=== PATIENT | female | born 1965 | race American Indian/Alaskan Native ===

== ENCOUNTER 2017-01-02 13:58 | Outpatient (CLI) | payer MEDICARE ==
--- NOTE | 2017-01-03 08:46 | Magnetic Resonance Report ---
MR CERVICAL SPINE WITHOUT CONTRAST HISTORY: Cervical spondylosis, neck pain, bone spur. TECHNIQUE: Axial T2. Sagittal T1, T2 and STIR. FINDINGS: The cervical spinal cord is normal size and signal intensity. No mass or abnormal intramedullary signal. Normal height and alignment of the cervical vertebral bodies. Normal bone marrow signal. No evidence for fracture, bone lesion or subluxation. The posterior elements are in appropriate relationship. There is mild diffuse disc desiccation. Mild disc space narrowing at C4-5 and C5-6. Mild diffuse facet arthropathy. No hypertrophic changes. C2-3: No abnormality. C3-4: Mild bilateral uncovertebral spurring and mild facet arthropathy are identified. Left neural foraminal narrowing is estimated at 50%. C4-5: Mild posterior and bilateral uncovertebral spurring is identified. Mild facet arthropathy. There is borderline to mild central canal narrowing measuring 9 mm in AP dimension. Bilateral neural foraminal narrowing is estimated at 50%. C5-6: A mild posterior bulging disc and mild right uncovertebral spurring are identified. Mild facet arthropathy. Right neural foraminal narrowing is estimated at 50%. C6-7: No abnormality. C7-T1: No abnormality. Impression: Mild to moderate multilevel cervical spondylosis as described above. C4-5 appears to be the most affected level.
== END 2017-01-02 13:59 | disposition home or self-care (01) ==
LOC: MRI 13:58
PROVIDERS: ATTEND Internal Medicine
DX: M47.892 Other spondylosis, cervical region (principal); M12.88 Other specific arthropathies, not elsewhere classified, other specified site; M53.82 Other specified dorsopathies, cervical region
CPT/HCPCS: 72141

== ENCOUNTER 2017-07-25 10:53 | Outpatient (CLI) | payer MEDICARE ==
--- NOTE | 2017-07-25 12:57 | Mammography Report ---
BILATERAL MAMMOGRAM: FINDINGS: The breasts are almost entirely fat (<25% glandular). No mass, distortion, suspicious calcification, or skin change is seen. CAD was utilized. IMPRESSION: Negative mammogram. There is no mammographic evidence of malignancy. RECOMMENDATION: Follow-up per ACS guidelines. BI-RADS CATEGORY: 1 = Negative ACR BI-RADS MAMMOGRAPHIC CODES: 0 = Needs additional imaging evaluation; 1 = Negative; 2 = Benign; 3 = Probably benign; 4 = Suspicious; 5 = Malignant; 6 = Known biopsy-proven malignancy COMMENT: 1. Dense breast tissue, i.e., adenosis, fibrocystic changes, etc., may obscure an underlying neoplasm. 2. Approximately 10% of cancers are not detected with mammography. 3. A negative mammography report should not delay biopsy if a clinically suspicious mass is present. COMMENT: Patient follow-up letters are generated in [employer].
== END 2017-07-25 10:54 | disposition home or self-care (01) ==
LOC: MAMMO 10:53
PROVIDERS: ATTEND Internal Medicine
DX: Z12.31 Encounter for screening mammogram for malignant neoplasm of breast (principal)
CPT/HCPCS: 77067

== ENCOUNTER 2017-08-22 07:44 | Outpatient (CLI) | payer MEDICARE ==
[2017-08-22] MEDS ORDERED: LEXISCAN IV ONE ×2 (08:58→09:04)
[2017-08-22 12:03] VITALS: BP 116/69
--- NOTE | 2017-08-23 02:03 | Treadmill Report ---
CARDIOVASCULAR NUCLEAR PERFUSION STUDY READING PHYSICIAN: Dr. Mistry. IMAGING PROTOCOL: The patient received 10 mCi of Technetium 99m Tetrofosmin for resting image and 28 mCi of Technetium 99m Tetrofosmin for stress imaging. The imaging for the whole procedure was completed 30-90 minutes following the initial injection of Technetium 99m Tetrofosmin. The SPECT imaging in the 180 degree arc was performed in the right anterior oblique projection. Computerized reconstruction of the images was performed for analysis. IMAGING RESULTS: Normal cavity size from stress to rest. Normal distribution of radionuclide in the anterior, inferior, septal, and apical regions. Gated SPECT, EF 65% with no wall motion abnormality. The patient infused Lexiscan with no EKG changes. SUMMARY: 1. Negative Lexiscan EKG. 2. Normal rest and stress myocardial perfusion scan. No significant stress ischemia. No wall motion abnormality. Gated SPECT, EF 65%. JOB# [id number] ANTONIETA/STEPHANY
== END 2017-08-22 07:45 | disposition home or self-care (01) ==
LOC: CARD 07:44
PROVIDERS: ATTEND Internal Medicine
DX: I10 Essential (primary) hypertension (principal)
CPT/HCPCS: 78452; 93017; A9502; J2785

== ENCOUNTER 2020-10-06 12:49 | Outpatient (CLI) | payer MEDICARE ==
--- NOTE | 2020-10-06 16:18 | Mammography Report ---
DIGITAL SCREENING MAMMOGRAM WITH CAD, 10/06/2020 INDICATION: Routine screening mammography. TECHNIQUE: Digital bilateral 2D mammography was obtained in the craniocaudal and mediolateral obliq ue projections. This examination was interpreted with the benefit of Computer-Aided Detection analysi s. COMPARISON: 07/25/2017. FINDINGS: Breast Density: The breasts are almost entirely fatty. There is no evidence of dominant mass, suspicious calcifications or architectural distortion in eithe r breast. IMPRESSION: Follow up recommendation: Routine yearly BI-RADS Category 1: Negative. A "normal" or negative report should not discourage follow up or biopsy of a clinically significant f inding. A written summary of these findings will be mailed to the patient. The patient will be entered into a mammography reporting system which will generate a reminder letter for the patient's next appointmen t at the appropriate interval. The [employer] recommends yearly mammograms starting at age 40 and continuing as l stalin as a woman is in good health. Breast MRI is recommended for women with an approximate 20-25% or greater lifetime risk of breast cancer, including women with a strong family history of breast or ova pari cancer or who have been treated for Hodgkin's disease. Signer Name: Esau Church MD Signed: 10/06/2020 4:13 PM Workstation Name: [email or web address]
== END 2020-10-06 12:50 | disposition home or self-care (01) ==
LOC: MAMMO 12:49
PROVIDERS: ATTEND Internal Medicine
DX: Z12.31 Encounter for screening mammogram for malignant neoplasm of breast (principal)
CPT/HCPCS: 77067

== ENCOUNTER 2021-09-27 11:57 | Outpatient (CLI) | payer MEDICARE ==
--- NOTE | 2021-09-27 14:48 | XRay Report ---
CHEST 2 VIEWS INDICATION: J20.9 ACUTE BRONCHITIS,UNSPECIFIED. COMPARISON: 02/27/2012 FINDINGS: SUPPORT DEVICES: None. HEART: Within normal limits. LUNGS/PLEURA: No acute air space or interstitial disease. No pneumothorax. ADDITIONAL FINDINGS: None. IMPRESSION: 1. No acute findings. Signer Name: Oswaldo Stone MD Signed: 09/27/2021 2:44 PM Workstation Name: [id number]
== END 2021-09-27 11:58 | disposition home or self-care (01) ==
LOC: XRAY 11:57
PROVIDERS: ATTEND Internal Medicine
DX: J20.9 Acute bronchitis, unspecified (principal)
CPT/HCPCS: 71046

== ENCOUNTER 2022-03-08 11:07 | Outpatient (CLI) | payer MEDICARE, BC ==
--- NOTE | 2022-03-08 13:42 | XRay Report ---
CHEST 2 VIEWS INDICATION / CLINICAL INFORMATION: COUGH R05.9. COMPARISON: None available. FINDINGS: SUPPORT DEVICES: None. HEART / MEDIASTINUM: No significant abnormality. LUNGS / PLEURA: No significant pulmonary or pleural abnormality. No pneumothorax. ADDITIONAL FINDINGS: No significant additional findings. IMPRESSION: 1. No acute findings. Signer Name: Homer Alarcon MD Signed: 03/08/2022 1:38 PM Workstation Name: [id number]
--- NOTE | 2022-03-08 14:00 | XRay Report ---
Cervical spine 5 views INDICATION: Neck pain FINDINGS: Endplate changes with anterior posterior disc osteophytes and facet arthropathy throughout. No subluxation is seen. Odontoid appears normal. Signer Name: Homer Alarcon MD Signed: 03/08/2022 1:56 PM Workstation Name: [email or web address]
--- NOTE | 2022-03-09 07:44 | Mammography Report ---
DIGITAL SCREENING MAMMOGRAM WITH CAD, 03/08/2022 CLINICAL INFORMATION / INDICATION: Routine screening mammography. SCREENING MAMMOGRAM Z12.31 TECHNIQUE: Digital bilateral 2D mammography was obtained in the craniocaudal and mediolateral obliqu e projections. This examination was interpreted with the benefit of Computer-Aided Detection analysis . COMPARISON: 10/06/2020 FINDINGS: Breast Density: There are scattered areas of fibroglandular density. No dominant mass, suspicious calcifications, or architectural distortion in either breast. IMPRESSION: No mammographic evidence of malignancy. Follow up recommendation: Routine yearly screening mammogram. BI-RADS Category 1: NEGATIVE A "normal" or negative report should not discourage follow up or biopsy of a clinically significant f inding. A written summary of these findings will be mailed to the patient. The patient will be entered into a mammography reporting system which will generate a reminder letter for the patient's next appointmen t at the appropriate interval. The [employer] recommends yearly mammograms starting at age 40 and continuing as l stalin as a woman is in good health. Breast MRI is recommended for women with an approximate 20-25% or greater lifetime risk of breast cancer, including women with a strong family history of breast or ova pari cancer or who have been treated for Hodgkin's disease. Signer Name: Oswaldo Stone MD Signed: 03/09/2022 7:40 AM Workstation Name: [id number]
== END 2022-03-08 11:08 | disposition home or self-care (01) ==
LOC: MAMMO 11:07
PROVIDERS: ATTEND Internal Medicine
DX: Z12.31 Encounter for screening mammogram for malignant neoplasm of breast (principal); M47.812 Spondylosis without myelopathy or radiculopathy, cervical region; M25.78 Osteophyte, vertebrae; R05.9 Cough, unspecified
CPT/HCPCS: 71046; 72050; 77067